=== PATIENT | female | born 1985 | race Caucasian/White ===

== ENCOUNTER 2021-09-12 19:25 | Observation (INO) ==
[2021-09-12 20:44] LABS: ABS Eosinophils 0.1 10^3/ul (0-0.6); ABS Lymphocytes 1.2 10^3/ul (1.0-4.8); ABS Monocytes 0.5 10^3/ul (0-0.8); ABS Neutrophils 6.4 10^3/ul (1.5-7.7); Eosinophil % 1.1 %; Hematocrit 38 % (35-47); Hemoglobin 13.6 g/dL (12.0-16.0); Lymphocyte % 14.6 %; Mean Corpuscular HGB Conc 36 g/dL (31-36); Mean Corpuscular Hemoglobin 31 pg (27-31); Mean Corpuscular Volume 88 fL (80-97); Platelet Count 280 10^3/uL (150-450); Red Blood Count 4.37 10^6 /uL (3.70-4.87); Red Cell Distribution Width 12 % (10-15); White Blood Count 8.2 10^3/uL (3.5-10.8)
[2021-09-12 20:58] LABS: High Sens Troponin Baseline < 3 pg/mL (<15)
[2021-09-12 21:09] LABS: Urine Benzodiazepine Screen None Detected (None Detect); Urine Cannabinoids Screen None Detected (None Detect); Urine Opiates Screen None Detected (None Detect)
[2021-09-12 21:39] LABS: ALT 15 U/L (7-52); AST 15 U/L (13-39); Albumin 4.5 g/dL (3.2-5.2); Albumin/Globulin Ratio 1.7 (1-3); Alcohol, S < 13 mg/dL (<13); Alkaline Phosphatase 55 U/L (35-149); Anion Gap 8 mmol/L (2-11); Blood Urea Nitrogen 7 mg/dL (6-24); CO2 Carbon Dioxide 25 mmol/L (22-32); Calcium 9.2 mg/dL (8.6-10.3); Chloride 105 mmol/L (101-111); Globulin 2.7 g/dL (2-4); Glucose 99 mg/dL (70-100); Sodium 138 mmol/L (135-145); Total Protein 7.2 g/dL (6.4-8.9); eGFR CKD-EPI 97.6 (>60)
[2021-09-12 22:35] LABS: High Sensitivity Troponin 1 Hr < 3 pg/mL (<15)
[2021-09-13 04:03] LABS: TSH Ultra Thyroid Stim Horm 2.04 mcIU/mL (0.34-5.60)
[2021-09-13 04:12] LABS: Ferritin 47.1 ng/mL (11-307)
[2021-09-13 04:15] LABS: Folate 12.32 ng/mL (5.90-24.80)
[2021-09-13 04:19] LABS: Vitamin D Total 25(OH) 15.5 ng/mL (20-50)
[2021-09-13] MEDS ORDERED: Gadoteridol (CONTRAST) 279.3 MG/ML 10 ML IV ONE (10:16)
[2021-09-13 11:15] VITALS: BP 113/69
== END 2021-09-13 15:10 | disposition home or self-care (01) ==
LOC: MED 19:25 → ED 19:25 → MED 09-13 01:10 → SUATTDRO 09-13 02:01
PROVIDERS: ADMIT Internal Medicine; ATTEND Internal Medicine